=== PATIENT | male | born 1980 | race Caucasian/White ===

== ENCOUNTER 2022-06-20 09:34 | Emergency (ER) | payer MEDICAID, OTHER ==
[~2022-06-20] VITALS: Ht 170.2 cm; Wt 81.0 kg
[2022-06-20 10:09] VITALS: BP 146/106
[2022-06-20] MEDS ORDERED: METOPROLOL TARTRATE 25 MG TAB PO ONE (10:30)
[2022-06-20] MEDS ORDERED: HYDROcodone-ACET 10/325MG TAB PO ONE (10:30)
[2022-06-20] MEDS ORDERED: TRAM-297 PO (10:47)
[2022-06-20] MEDS ORDERED: MET25T PO ×2 (10:47→10:50)
== END 2022-06-20 10:47 | disposition home or self-care (01) ==
LOC: ER 09:34
DX: M23.91 Unspecified internal derangement of right knee (principal); M11.261 Other chondrocalcinosis, right knee; I10 Essential (primary) hypertension; X58.XXXA Exposure to other specified factors, initial encounter; Y93.89 Activity, other specified; Y92.89 Other specified places as the place of occurrence of the external cause; Y99.8 Other external cause status
CPT/HCPCS: 73562